=== PATIENT | male | born 1960 | race Caucasian/White ===

== ENCOUNTER 2017-03-22 17:39 | Emergency (ER) | payer OTHER ==
[~2017-03-22] VITALS: Ht 193 cm; Wt 91.5 kg
[2017-03-22 21:51] VITALS: BP 107/62
== END 2017-03-22 21:51 | disposition home or self-care (01) ==
LOC: EME 17:39
DX: F10.10 Alcohol abuse, uncomplicated (principal); Y90.8 Blood alcohol level of 240 mg/100 ml or more; W17.81XA Fall down embankment (hill), initial encounter
CPT/HCPCS: 70450; 99281; 99284; G0480